=== PATIENT | female | born 1985 | race American Indian/Alaskan Native ===

== ENCOUNTER 2018-05-05 06:14 | Day surgery (SDC) | payer BC ==
[2018-05-05] MEDS ORDERED: NACL BACTERIOSTATIC INFILTRATI ONE (06:49)
[2018-05-05] MEDS ORDERED: SUBLIMAZE ONE (07:16)
[2018-05-05] MEDS ORDERED: DIPRIVAN 10 MG/ML IV ONE (07:16)
[2018-05-05] MEDS ORDERED: ZOFRAN IV PRN (07:29)
--- NOTE | 2018-05-05 07:29 | Anesthesia Consultation ---
Anesthesia Consult and Med Hx Date of service: 05/05/18 - Airway Anesthetic Teeth Evaluation: Good ROM Head & Neck: Adequate Mental/Hyoid Distance: Adequate Mallampati Class: Class II Intubation Access Assessment: Probably Good - Pulmonary Exam CTA: Yes - Cardiac Exam Cardiac Exam: RRR - Pre-Operative Health Status ASA Pre-Surgery Classification: ASA2 Proposed Anesthetic Plan: General - Pulmonary Hx Smoking: No - Central Nervous System Hx Back Pain: Yes Hx Psychiatric Problems: No - Endocrine Hx Non-Insulin Dependent Diabetes: Yes (diet controlled) - Other Systems Hx Alcohol Use: Yes (SOCIALLY) Hx Substance Use: Yes (HOOKA) Hx Cancer: No Hx Obesity: Yes
--- NOTE | 2018-05-05 07:29 | Anesthesia Day of Surgery ---
Anesthesia Day of Surgery - Day of Surgery Patient Examined: Yes Patient H&P Reviewed: Yes Patient is NPO: Yes
[2018-05-05 07:31] LABS: Hematocrit 36.2 % (30.3-42.9); Hemoglobin 11.5 gm/dl (10.1-14.3); Mean Corpuscular HGB Conc 32 % (30-34); Mean Corpuscular Hemoglobin 28 pg (28-32); Mean Corpuscular Volume 89 fl (79-97); Platelet Count 278 K/mm3 (140-440); Red Blood Count 4.05 M/mm3 (3.65-5.03); Red Cell Distribution Width 13.2 % (13.2-15.2)
[2018-05-05] MEDS ORDERED: LACTATED RINGERS 1,000 ML IV SCH (07:39)
[2018-05-05] MEDS ORDERED: VERSED IV NR (07:40)
[2018-05-05] MEDS ORDERED: PEPCID IV NR (07:47)
[2018-05-05] MEDS ORDERED: ANCEF/STERILE WATER 2 GM/20 ML IV NR (08:00)
[2018-05-05] MEDS ORDERED: ADRENALIN IV ONE (08:13)
[2018-05-05] MEDS ORDERED: NACL 0.9% IR ONE (08:13)
[2018-05-05] MEDS ORDERED: LACTATED RINGERS IV ONE (08:13)
--- NOTE | 2018-05-05 08:30 | Discharge Summary ---
Short Stay Discharge Plan Activity: other (Prevent trauma to Nipples and may remove dressing in 5 days) Weight Bearing Status: Full Weight Bearing Wound: remove dressing (may remove dressing in 5 days) Follow up with: TONYA ARORA [Other] - 6 Weeks WORK,TIAGO Adames JR, MD [Staff Physician] - 7 Days
--- NOTE | 2018-05-05 08:32 | Short Stay Summary ---
Short Stay Documentation Date of service: 05/05/18 - Allergies and Medications Current Medications: Allergies No Known Allergies Allergy (Verified 05/02/18 10:49) Home Medications Medication Instructions Recorded Confirmed Last Taken Type No Known Home Medications [No 01/23/18 01/23/18 Unknown History Reported Home Medications] Active Medications Cefazolin Sodium (Ancef/Sterile Water 2 Gm/20 Ml) 2 gm IV PREOP NR Stop: 05/05/18 12:00 Famotidine (Pepcid) 20 mg IV PREOP NR Stop: 05/05/18 10:00 Last Admin: 05/05/18 08:07 Dose: 20 mg Hydromorphone HCl (Dilaudid) 0.5 mg IV Q10MIN PRN PRN Reason: Pain , Severe (7-10) Stop: 05/05/18 13:00 Lactated Ringer's (Lactated Ringers) 1,000 mls @ 75 mls/hr IV DIRECT PANCHO Last Admin: 05/05/18 07:05 Dose: 75 mls/hr Midazolam HCl (Versed) 2 mg IV PREOP NR Stop: 05/05/18 23:59 Last Admin: 05/05/18 08:05 Dose: 2 mg Ondansetron HCl (Zofran) 4 mg IV ONCE PRN PRN Reason: Nausea And Vomiting Stop: 05/05/18 12:00 - Brief post op/procedure progress note Date of procedure: 05/05/18 Pre-op diagnosis: Acquired Absence of Nipples Post-op diagnosis: same Procedure: Bilateral Nipple Reconstruction Revision of LT Breast Reconstruction Anesthesia: GETA Surgeon: TIAGO ROSE JR Estimated blood loss: minimal Specimen disposition: discarded Condition: stable - Disposition Condition at discharge: Good Disposition: DC-01 TO HOME OR SELFCARE Short Stay Discharge Plan Follow up with: TONYA ARORA [Other] - 6 Weeks TIAGO ROSE JR, MD [Staff Physician] - 7 Days
[2018-05-05] MEDS ORDERED: ZOFRAN ONE (08:52)
[2018-05-05] MEDS ORDERED: XYLOCAINE MPF 2% ONE (08:52)
[2018-05-05] MEDS ORDERED: DECADRON ONE (08:52)
[2018-05-05] MEDS ORDERED: ADRENALIN ONE (09:04)
[2018-05-05] MEDS ORDERED: LACTATED RINGERS 1,000 ML ONE (09:16)
[2018-05-05] MEDS ORDERED: NEO SYNEPHRINE/NS Syringe(OR USE) IV ONE (09:30)
[2018-05-05 09:54] LABS: RBC Morphology Normal; Total Cells Counted 100
[2018-05-05 09:55] LABS: Platelet Estimate Consistent w Auto
[2018-05-05] MEDS: DILAUDID IV PRN ×2 (10:50→11:00)
[2018-05-05 11:48] VITALS: BP 103/67
--- NOTE | 2018-05-05 12:52 | Operative Report ---
PREOPERATIVE DIAGNOSES: 1. Bilateral acquired breast deformity. 2. Bilateral acquired absence of nipples. POSTOPERATIVE DIAGNOSES: 1. Bilateral acquired breast deformity. 2. Bilateral acquired absence of nipples. PROCEDURE: 1. Bilateral nipple reconstruction. 2. Revision of left breast reconstruction. SURGEON: Felipe Pineda MD DESCRIPTION OF PROCEDURE: The patient was brought to the operating room and placed on the table in supine position. Following administration of general anesthesia, bilateral breasts were prepped with Betadine solution and draped in the usual sterile manner. A #11 blade scalpel was used to incise preoperative markings for a flag shaped flap bilaterally, raised in standard manner, folded around upon itself, secured with 3-0 Monocryl sutures to form a cylinder. Donor site was closed with interrupted 2-0 Monocryl sutures. A dermal bridge was deepithelialized using curved iris scissors upon which the nipple rested. Skin closure was performed with a running 3-0 Monocryl suture followed by Mastisol, Steri-Strips, and sterile dressing bilaterally. On the left breast following preoperative markings, the lower outer quadrant of the breast was liposuctioned for approximately 30 mL of fat plus tumescent fluid. Mastisol, Steri-Strips, and sterile dressings applied. The patient tolerated procedure well and returned to recovery room in stable condition. JOB# [id number] FTW/CRISTY
== END 2018-05-05 12:51 | disposition home or self-care (01) ==
LOC: OR 06:14
PROVIDERS: ATTEND Plastic Surgery
DX: N65.0 Deformity of reconstructed breast (principal); E66.9 Obesity, unspecified; Z90.13 Acquired absence of bilateral breasts and nipples; Z79.899 Other long term (current) drug therapy; Z68.38 Body mass index [BMI] 38.0-38.9, adult
CPT/HCPCS: 19350; 36415; 81025; 82962; 85007; 85025; J0171; J0690; J1100; J1170; J2250; J2370; J2405; J2704; J3010; J7120